=== PATIENT | male | born 1945 | race Caucasian/White ===

== ENCOUNTER 2018-02-01 10:51 | Inpatient (IN) | payer MEDICARE, SELFPAY ==
[2018-01-20 09:16] VITALS: BP 158/89; PULSE 73; RESP 17; TEMP 37; O2SAT 96; BMI 35.6
--- NOTE | 2018-01-20 09:37 | SDCEKG_ITS ---
Test Reason : Blood Pressure : / mmHG Vent. Rate : 069 BPM Atrial Rate : 069 BPM P-R Int : 174 ms QRS Dur : 100 ms QT Int : 388 ms P-R-T Axes : 061 -15 023 degrees QTc Int : 415 ms Normal sinus rhythm Normal ECG Confirmed by EFRAIN FUENTES, PRAVEENA ([id number]), dictionary editor FREDERIC LICONA ([id number]) on 01/23/2018 2:24:40 PM Referred By: Cirilo Duncan Confirmed By:PRAVEENA ZUNIGA MD
--- NOTE | 2018-01-20 09:37 | RAD_ITS ---
STUDY: X-RAY CHEST REASON FOR EXAM: Male, 72 years old. Shortness of breath. Preoperative evaluation. TECHNIQUE: PA and lateral views of the chest. COMPARISON: None. FINDINGS: Hyperinflation. The lungs are clear. There is no demonstrated pleural abnormality. Normal size heart. Normal mediastinum and kenton. Normal visualized pulmonary arteries. There is atherosclerotic calcification of the aortic arch with tortuosity. There are degenerative changes of the visualized thoracic spine. Normal visualized ribs, clavicles, and shoulders. There is no demonstrated abnormality of the visualized soft tissue structures of the upper abdomen. RAD/Chest PA and Lateral IMPRESSION: Hyperinflation. The lungs are clear. Electronically Signed: Stevie Sargent MD at 10:50 EST Tel [phone], Service support ,
[2018-01-20 10:06] LABS: Absolute Lymphocyte Count 1.54 X10^3/ul (0.83-4.51); Absolute Neutrophil Count 3.3 X10^3/uL (2.0-7.7); Basophil# 0.03 X10^3/uL; Basophil% 0.5 % (0-1); Eosinophil# 0.16 X10^3/uL; Eosinophils% 2.8 % (0-5); Hematocrit 45.1 % (40-54); Hemoglobin 15.4 g/dl (13.0-16.5); Lymphocyte # 1.54 X10^3/ul (4.0); Lymphocyte % 27.4 % (19-41); Mean Corp Hgb Conc 34.1 g/gl (32-36); Mean Corpuscular Hgb 31.2 pg (27.0-32.0); Mean Corpuscular Volume 91.3 fL (80-94); Mean Platelet Vol. 9.3 fl (6.2-12.0); Monocyte# 0.61 X10^3/uL; Monocyte% 10.9 % (0-10); Neutrophil # 3.28 X10^3/uL (2.7-7.7); Neutrophil % 58.4 % (47-70); Platelet Count 239 K/mm3 (150-450); RBC Distribution Width CV 12.5 % (11.6-14.6); RBC Distribution Width SD 41.9 fl (35.1-43.9); Red Blood Count 4.94 M/mm3 (4.6-6.2); White Blood Count 5.6 K/mm3 (4.4-11.0)
[2018-01-20 10:07] LABS: POSITIVE COUNT NO; POSITIVE DIFFERENTIAL NO; POSITIVE MORPHOLOGY NO
[2018-01-20 10:39] LABS: Hemoglobin A1c 7.2 % (4.2-6.3)
[2018-01-20 10:48] LABS: Anion Gap 7 (5-15); BUN 23 mg/dL (7-18); BUN/Creat Ratio 23.2 RATIO (10-20); Calcium,Total 8.2 mg/dL (8.5-10.1); Chloride 106 mmol/L (98-107); Creatinine, Serum 0.99 mg/dL (0.70-1.30); EST Glomerular Filtration Rate 79 mL/min (>60); Est Glom Filt Rate - Afr Amer 95 mL/min (>60); Estimated Creatinine Clearance 56.48 ml/min; Glucose 148 mg/dL (74-106); Potassium 4.2 mmol/L (3.5-5.1); Sodium Level 140 mmol/L (136-145)
[2018-02-01] VITALS (9 sets, daily range): BP systolic 119–155; BP diastolic 62–92; PULSE 60–94; RESP 15–18; TEMP 36–36.8; O2SAT 90–96; BMI 35.6; BMI 33.0
[2018-02-01] MEDS: oxyCODONE HCl Cr 10 MG Tablet PO (11:39)
[2018-02-01] MEDS: Celecoxib 200 MG Capsule 400 MG PO (11:40)
[2018-02-01] MEDS: Acetaminophen 500 MG Tablet 1000 MG PO ×2 (11:40→21:37)
[2018-02-01] MEDS: Scopolamine 1mg/72hr Patch 1 PATCH TD (12:15)
[2018-02-01 12:50] LABS: Bedside Glucose 139 mg/dL (70-110)
[2018-02-01] MEDS: Cefazolin 2 GM in 0.9% Normal Saline 100 ML IV (13:20)
[2018-02-01] MEDS: Lactated Ringers 1,000 ML 125 ML IV (15:15)
--- NOTE | 2018-02-01 15:17 | PCM.OPRPT ---
Report of Operation Date of Procedure: 02/01/18 Pre-Operative Diagnosis: Left shoulder primary glenohumeral arthritis Post-Operative Diagnosis: Left shoulder primary glenohumeral arthritis Surgery/Procedure Performed:: Left anatomic total shoulder replacement Description of Surgical Findings:: Stable shoulder. Well repaired lesser tuberosity osteotomy. microfilm machine operator: Pk Hills Type of Anesthesia:: General Anesthesiologist: Leighton Carr Special Medications: 2 g Ancef, 1 g TXA at incision, 1 g TXA closure, 10 mg Decadron, joint cocktail (5 mg Duramorph, 30 mL of 0.5% Ropivicaine, 1000 units of epinephrine, 30 mg of Toradol), vancomycin IV throughout case Specimen's removed: Bony cuts Estimated Blood Loss (mL): 150 Fluids Replaced: 1000 L crystalloid Description of Procedure: Components used 1. [place] 48 mm glenoid 2. Equinox 52mm, 23mm humeral head number 4 mm offset 4. Equinox humeral stem primary press-fit 11mm size Brief history/Operative indications: 72 yo M with history of L shoulder primary glenohumeral osteoarthritis. Patient failed conservative measures as mentioned in the H&P. After discussion of risk and benefits of reverse total shoulder replacement including but not limited to blood loss, DVTs, PEs, nerve vessel damage, infection, general risk of anesthesia including loss of life, instability and stiffness patient demonstrating understanding wish to proceed was able to sign informed consent. Medical clearance was obtained. Procedure: On the date of the procedure, patient's L upper extremity was marked in the preoperative area. Patient was taken back to the operating room where they were placed on the table in the supine position. Anesthesia assumed control of the C-spine and airway, then administered anesthetic. All bony prominences were identified well-padded, the head was secured and the patient was placed in the beachchair position at about 35? inclination. Anesthesia remained in control of the C-spine airway throughout the remainder of the procedure. Patient was then appropriately fastened to the table and the L upper extremity was prepped in a sterile fashion. The surgeons then scrubbed. Upon reentering the room, the L upper extremity was draped in a sterile fashion and the incision was marked out. Timeout was called, everyone agreed upon the side, the site, the procedure to be performed, patient identity and antibiotics given. Incision was taken down through skin and subcutaneous tissue, fat down to fascia. The stripe of the deltopectoral interval and cephalic vein were identified and blunt dissection was used to retract the deltoid. The cephalic vein was retracted laterally. Clavipectoral fascia was then incised and a cobra retractor was placed in the wound. The proximal one third of the pectoralis major insertion was released. Pectoralis tendon insertion was used to tenodesed the biceps tendon which was identified in the bicipital groove. Tenodesis was done with #1 Vicryl. Proximally we followed the biceps tendon after transecting it into the rotator interval. The rotator interval was split and the arm was externally rotated. The split was 1 cm medial to the bicipital groove. Subscapularis tendon was released. We released down the anterior portion of the humeral head and a barclay elevator was used to release the inferior portion of the humeral head. The arm was externally rotated and the shoulder was dislocated. The [employer] humeral head cutting guide was used to make humeral cut. This was done even with the articular surface. Once his humeral head cut was made humerus was retracted out of the way and the glenoid was exposed. After exposing the glenoid, the labrum and the remaining proximal biceps were debrided. At this time we are able to view the entire outer edge of the glenoid. A central pin was placed we sequentially reamed over this central pin to 48MM. Once this was completed the central pedicle was drilled. Wound was closely irrigated out with normal saline we then drilled sequentially for the coinciding 3 peg holes. Once these were drilled and a trial was placed. Once the trial fit appropriately cement was mixed. The bone was copiously irrigated and cleaned out. It was then dried very well. The cement holes were pressurized and the glenoid was fastened in place. The cement had cured and the glenoid was secure we directed our attention to the humerus The humerus was again externally rotated exposing the proximal portion of the humerus. Central canal finder was then used to open up the canal. We reamed to a 11mm reamer. We then broached to a 11mm stem. We trialed the 52 mm x 23 mm with 4 mm offset humeral head. We obtained an adequate reduction at this time with a nice stable shoulder. Good internal rotation to the gluteus, forward elevation to 140?, external rotation to 20? and 50% posterior translation. Final components were then assembled on the back table, trials were removed and the wound was copiously irrigated with normal saline after dislocating the shoulder. Once the final components were assembled they were impacted into place. Shoulder was then reduced and found to be stable with good range of motion. Subscapularis tendon and osteotomy were then repaired securely with FiberWire. A 1 L of normal saline lavage was performed. The deltopectoral fascia was then closed using #1 Vicryl skin was closed using 2-0 Vicryl interrupted sutures and final skin closure was done with 3-0 Monocryl. Steri-Strips are placed for final skin closure. Sterile dressing was placed patient was then placed in a sling and awakened by anesthesia. Patient was then transferred to the PACU for recovery. Postoperative plan: Patient will be admitted to the hospital overnight. They will get physical therapy starting in 2 weeks with normal postoperative regimen. Patient will be placed on aspirin daily for DVT prophylaxis. The first postoperative appointment will be in 2 weeks for wound check and initiation of phase 1 physical therapy. During the course of the procedure the physician real estate administrative assistant played a vital role. His intimate knowledge of my steps in the procedure aided in safe and expedient completion of the procedure. The PA played a vital rolls in positioning particularly in obtaining the appropriate beach chair position and securing the patient's body and head to the table. The PA was also vital in the retraction of soft tissues during the exposure and especially the glenoid work as this is a vital part of the procedure to prevent neurovascular damage. the PA was also vital and protecting soft tissues during times of bony cuts and reaming. He also played a vital role in closure with my direct supervision. The PA was also important during reduction and dislocation of the joint and trials intraoperatively. Grafts/Implants Used: Janet reunion anatomic total shoulder - Complications None - Admit VTE Documentation VTE Present on Admission: No VTE Mechan Device Prophylaxis: SCD's, Knee High ANIL Hose VTE Pharm Prophylaxis ordered?: Yes
--- NOTE | 2018-02-01 15:22 | OP.PCM_ITS ---
Report of Operation Date of Procedure: 02/01/18 Pre-Operative Diagnosis: Left shoulder primary glenohumeral arthritis Post-Operative Diagnosis: Left shoulder primary glenohumeral arthritis Surgery/Procedure Performed:: Left anatomic total shoulder replacement Description of Surgical Findings:: Stable shoulder. Well repaired lesser tuberosity osteotomy. slipcover cutter: Pk Hills Type of Anesthesia:: General Anesthesiologist: Leighton Carr Special Medications: 2 g Ancef, 1 g TXA at incision, 1 g TXA closure, 10 mg Decadron, joint cocktail (5 mg Duramorph, 30 mL of 0.5% Ropivicaine, 1000 units of epinephrine, 30 mg of Toradol), vancomycin IV throughout case Specimen's removed: Bony cuts Estimated Blood Loss (mL): 150 Fluids Replaced: 1000 L crystalloid Description of Procedure: Components used 1. [place] 48 mm glenoid 2. Equinox 52mm, 23mm humeral head number 4 mm offset 4. Equinox humeral stem primary press-fit 11mm size Brief history/Operative indications: 72 yo M with history of L shoulder primary glenohumeral osteoarthritis. Patient failed conservative measures as mentioned in the H&P. After discussion of risk and benefits of reverse total shoulder replacement including but not limited to blood loss, DVTs, PEs, nerve vessel damage, infection, general risk of anesthesia including loss of life, instability and stiffness patient demonstrating understanding wish to proceed was able to sign informed consent. Medical clearance was obtained. Procedure: On the date of the procedure, patient's L upper extremity was marked in the preoperative area. Patient was taken back to the operating room where they were placed on the table in the supine position. Anesthesia assumed control of the C-spine and airway, then administered anesthetic. All bony prominences were identified well-padded, the head was secured and the patient was placed in the beachchair position at about 35? inclination. Anesthesia remained in control of the C-spine airway throughout the remainder of the procedure. Patient was then appropriately fastened to the table and the L upper extremity was prepped in a sterile fashion. The surgeons then scrubbed. Upon reentering the room, the L upper extremity was draped in a sterile fashion and the incision was marked out. Timeout was called, everyone agreed upon the side, the site, the procedure to be performed, patient identity and antibiotics given. Incision was taken down through skin and subcutaneous tissue, fat down to fascia. The stripe of the deltopectoral interval and cephalic vein were identified and blunt dissection was used to retract the deltoid. The cephalic vein was retracted laterally. Clavipectoral fascia was then incised and a cobra retractor was placed in the wound. The proximal one third of the pectoralis major insertion was released. Pectoralis tendon insertion was used to tenodesed the biceps tendon which was identified in the bicipital groove. Tenodesis was done with #1 Vicryl. Proximally we followed the biceps tendon after transecting it into the rotator interval. The rotator interval was split and the arm was externally rotated. The split was 1 cm medial to the bicipital groove. Subscapularis tendon was released. We released down the anterior portion of the humeral head and a barclay elevator was used to release the inferior portion of the humeral head. The arm was externally rotated and the shoulder was dislocated. The [employer] humeral head cutting guide was used to make humeral cut. This was done even with the articular surface. Once his humeral head cut was made humerus was retracted out of the way and the glenoid was exposed. After exposing the glenoid, the labrum and the remaining proximal biceps were debrided. At this time we are able to view the entire outer edge of the glenoid. A central pin was placed we sequentially reamed over this central pin to 48MM. Once this was completed the central pedicle was drilled. Wound was closely irrigated out with normal saline we then drilled sequentially for the coinciding 3 peg holes. Once these were drilled and a trial was placed. Once the trial fit appropriately cement was mixed. The bone was copiously irrigated and cleaned out. It was then dried very well. The cement holes were pressurized and the glenoid was fastened in place. The cement had cured and the glenoid was secure we directed our attention to the humerus The humerus was again externally rotated exposing the proximal portion of the humerus. Central canal finder was then used to open up the canal. We reamed to a 11mm reamer. We then broached to a 11mm stem. We trialed the 52 mm x 23 mm w ith 4 mm offset humeral head. We obtained an adequate reduction at this time with a nice stable shoulder. Good internal rotation to the gluteus, forward elevation to 140?, external rotation to 20? and 50% posterior translation. Final components were then assembled on the back table, trials were removed and the wound was copiously irrigated with normal saline after dislocating the shoulder. Once the final components were assembled they were impacted into place. Shoulder was then reduced and found to be stable with good range of motion. Subscapularis tendon and osteotomy were then repaired securely with FiberWire. A 1 L of normal saline lavage was performed. The deltopectoral fascia was then closed using #1 Vicryl skin was closed using 2-0 Vicryl interrupted sutures and final skin closure was done with 3-0 Monocryl. Steri- Strips are placed for final skin closure. Sterile dressing was placed patient was then placed in a sling and awakened by anesthesia. Patient was then transfe rred to the PACU for recovery. Postoperative plan: Patient will be admitted to the hospital overnight. They will get physical therapy starting in 2 weeks with normal postoperative regimen. Patient will be placed on aspirin daily for DVT prophylaxis. The first postoperative appointment will be in 2 weeks for wound check and initiation of phase 1 physical therapy. During the course of the procedure the physician marketing communications assistant played a vital role. His intimate knowledge of my steps in the procedure aided in safe and expedient completion of the procedure. The PA played a vital rolls in positioning particularly in obtaining the appropriate beach chair position and securing the patient's body and head to the table. The PA was also vital in the retraction of soft tissues during the exposure and especially the glenoid work as this is a vital part of the procedure to prevent neurovascular damage. the PA was also vital and protecting soft tissues during times of bony cuts and reaming. He a lso played a vital role in closure with my direct supervision. The PA was also important during reduction and dislocation of the joint and trials intraoperatively. Grafts/Implants Used: Sharps reunion anatomic total shoulder - Complications None - Admit VTE Documentation VTE Present on Admission: No VTE Mechan Device Prophylaxis: SCD's, Knee High ANIL Hose VTE Pharm Prophylaxis ordered?: Yes
--- NOTE | 2018-02-01 16:15 | RAD_ITS ---
STUDY: X-RAY - LEFT SHOULDER REASON FOR EXAM: Male, 72 years old. Postop left shoulder arthroplasty. TECHNIQUE: Portable, frontal view(s) of the shoulder. COMPARISON: None. FINDINGS: Left shoulder arthroplasty. The prosthetic components appear to be normally seated and articulated with no acute fracture. Moderate chronic AC joint arthrosis. Expected postsurgical features in the surrounding soft tissues. RAD/Shoulder One View IMPRESSION: Appropriate postsurgical features. Correlate with operative report. Electronically Signed: Leander Wilkinson MD at 17:25 EST Tel , Service support ,
[2018-02-01 16:40] LABS: Bedside Glucose 137 mg/dL (70-110)
[2018-02-01] MEDS: Cefazolin 1 GM/50 ML BAG IV (21:37)
[2018-02-02 03:30] VITALS: BP 124/70; PULSE 68; RESP 18; TEMP 36.4; O2SAT 94
[2018-02-02] MEDS: Acetaminophen 500 MG Tablet 1000 MG PO (05:44)
[2018-02-02] MEDS: Cefazolin 1 GM/50 ML BAG IV (05:44)
[2018-02-02 07:56] VITALS: O2SAT 93
[2018-02-02] MEDS: Famotidine 20 MG Tablet PO (07:57)
[2018-02-02] MEDS: Aspirin 325 MG Tablet PO (07:57)
[2018-02-02] MEDS: Lisinopril 20 MG Tablet PO (07:57)
[2018-02-02] MEDS: Methylphenidate HCl 5 MG Tablet 10 MG PO (07:57)
[2018-02-02 08:00] VITALS: BP 111/66; PULSE 69; RESP 14; TEMP 36.3; O2SAT 96
--- NOTE | 2018-02-02 08:49 | PN.ORTHO_ITS ---
Subjective: The patient was sitting in bedside chair upon examination. Patient denies any chest pain, shortness of breath, dizziness, lightheadedness, nausea or vomiting, or calf pain. Pain is controlled on medications. No adverse overnight events. Overall patient is doing very well. Plan is for discharge home today. Objective: Vital signs stable, afebrile Dressing is C/D/I Ultra-sling fitting appropriately Sensation intact to axillary, radial, median, and ulnar distribution Motor intact to AIN, PIN, and ulnar nerve - Physical Exam General: Alert, Oriented x3, Cooperative, No apparent distress Vital Signs Temp Pulse Resp BP Pulse Ox 97.4 F L 69 14 111/66 96 02/02/18 08:00 02/02/18 08:00 02/02/18 08:00 02/02/18 08:00 02/02/18 08:00 Oxygen Flow Rate (L/min) 1 Oxygen Delivery Method Room Air Weight: 95.5 kg Body Mass Index (BMI) 33.0 Finger Stick Blood Glucose 137 Intake and Output for Last 24 Hours 01/31/18 02/01/18 02/02/18 23:59 23:59 23:59 Intake Total 1000 / 1000 647 / 647 Balance 1000 / 1000 647 / 647 POC Glucose 02/01/18 02/01/18 16:28 11:59 POC Glucose 137 H 139 H Medical Necessity - Tobacco Use Smoking Status: Never smoker Assessment/Plan 1. S/P left anatomic total shoulder arthroplasty POD #1 2. Continue Pain Medications: Tylenol and OxyIR 3. DVT Prophylaxis: Aspirin 325 mg daily for DVT prophylaxis for 2 weeks postoperatively 4. PT/OT: No range of motion left shoulder. Okay for physical therapy to work on elbow, wrist, hand range of motion only. Continue with UltraSling at all times. Patient will begin formal physical therapy 2 weeks postoperatively after his appointment at [facility]. 5. Encouraged Incentive Spirometry 6. Disposition: Orthopedically stable, plan will be for discharge home today. Patient will follow-up per postop instructions. Prescriptions will be attached to chart.
--- NOTE | 2018-02-02 08:51 | PCM.DC.ORTHO ---
Discharge Diet: No Restrictions Discharge Activity: May Not Drive May shower in (days): 1 - Turned dressing away from water Ice area for (Minutes): 20 - Every 1-2 hours while awake Weight Bearing Status: No weight bearing - Left upper extremity Keep extremity elevated above heart level: Operative Extremity Call your doctor if your incision/area has: Continuous Slow Oozing, Sudden Increased Bleeding, Increased Pain/ Swelling, Increased Redness, Foul Smelling Discharge Call your doctor if you observe: Fever of 101 or Higher, Coldness, Increased Pain, Numbness or Tingling, Change in Color Remove Dressing in (days):: 4 - Okay to remove on February 06, 2018 Additional Instructions: Follow [facility] postop instructions Allergies/Adverse Reactions: Allergies No Known Allergies Allergy (Verified 01/20/18 09:10) Medications to take at Discharge Lisinopril [Zestril] 20 mg PO DAILY 01/20/18 Methylphenidate HCl [Ritalin] 10 mg PO BID 01/20/18 Acetaminophen [Tylenol] 1,000 mg PO Q8 #90 tab 02/02/18 Aspirin 325 mg PO DAILY@0800 #14 tab 02/02/18 Famotidine [Pepcid] 20 mg PO DAILY #14 tab 02/02/18 Oxycodone [Oxyir] 5 - 10 mg PO Q4H PRN PRN 5 Days #60 tab 02/02/18 Senna/Docusate Sodium [Senokot-S] 2 tab PO BID PRN PRN #20 tab 02/02/18 The following prescriptions were given: Oxycodone [Oxyir] 5 - 10 mg PO Q4H PRN PRN 5 Days #60 tab PRN Reason: Pain Acetaminophen [Tylenol] 1,000 mg PO Q8 #90 tab Aspirin 325 mg PO DAILY@0800 #14 tab Famotidine [Pepcid] 20 mg PO DAILY #14 tab Senna/Docusate Sodium [Senokot-S] 2 tab PO BID PRN PRN #20 tab PRN Reason: Constipation Primary Care Physician: Jacob Qiu [Primary Care Provider] - Test Results: Test results from this visit will be discussed in further detail at your follow-up appointment, if applicable. Please Follow Up With: Physical Therapy When: Violeta webber will call to schedule appointment on either 02/15/18 or 02/16/18 Please Follow Up With: Pk Hills PA-C When: 02/15/18 @ 9:30 am
--- NOTE | 2018-02-02 08:56 | DCINST_ITS ---
Discharge Diet: No Restrictions Discharge Activity: May Not Drive May shower in (days): 1 - Turned dressing away from water Ice area for (Minutes): 20 - Every 1-2 hours while awake Weight Bearing Status: No weight bearing - Left upper extremity Keep extremity elevated above heart level: Operative Extremity Call your doctor if your incision/area has: Continuous Slow Oozing, Sudden Increased Bleeding, Increased Pain/ Swelling, Increased Redness, Foul Smelling Discharge Call your doctor if you observe: Fever of 101 or Higher, Coldness, Increased Pain, Numbness or Tingling, Change in Color Remove Dressing in (days):: 4 - Okay to remove on February 06, 2018 Additional Instructions: Follow [facility] postop instructions Allergies/Adverse Reactions: Allergies No Known Allergies Allergy (Verified 01/20/18 09:10) Medications to take at Discharge Lisinopril [Zestril] 20 mg PO DAILY 01/20/18 Methylphenidate HCl [Ritalin] 10 mg PO BID 01/20/18 Acetaminophen [Tylenol] 1,000 mg PO Q8 #90 tab 02/02/18 Aspirin 325 mg PO DAILY@0800 #14 tab 02/02/18 Famotidine [Pepcid] 20 mg PO DAILY #14 tab 02/02/18 Oxycodone [Oxyir] 5 - 10 mg PO Q4H PRN PRN 5 Days #60 tab 02/02/18 Senna/Docusate Sodium [Senokot-S] 2 tab PO BID PRN PRN #20 tab 02/02/18 The following prescriptions were given: Oxycodone [Oxyir] 5 - 10 mg PO Q4H PRN PRN 5 Days #60 tab PRN Reason: Pain Acetaminophen [Tylenol] 1,000 mg PO Q8 #90 tab Aspirin 325 mg PO DAILY@0800 #14 tab Famotidine [Pepcid] 20 mg PO DAILY #14 tab Senna/Docusate Sodium [Senokot-S] 2 tab PO BID PRN PRN #20 tab PRN Reason: Constipation Primary Care Physician: Jacob Qiu [Primary Care Provider] - Test Results: Test results from this visit will be discussed in further detail at your follow- up appointment, if applicable. Please Follow Up With: Physical Therapy When: Violeta webber will call to schedule appointment on either 02/15/18 or 02/16/18 Please Follow Up With: Pk Hills PA-C When: 02/15/18 @ 9:30 am
--- NOTE | 2018-02-02 12:00 | CASEMGMT ---
ZAKIYA WONG Face to Face with patient for initial transition planning/care coordination assessment. RN CM introduced self and role at [facility]. Patient sitting in chair, alert and oriented. Patient willing to participate in assessment and is able to answer all questions appropriately. Care providers, pharmacy, and demographics verified. Patient wishes to discharge home with follow-up at [facility]. Patient states he has no further needs or concerns at this time. CM to follow for discharge planning needs that may arise. Disposition Plan: Patient to discharge home with family support and follow-up plans in place. Leatha SOTOMAYOR, RN, CM
--- OUTSIDE RECORDS SUMMARY | 2018-05-05 14:54 | XMS RPT_ITS ---
:1945 Author Organization OHIP Care Team Providers Name Role Phone CIRILO WHITTINGTON MD Admitting Unavailable CIRILO WHITTINGTON MD Attending Unavailable CIRILO WHITTINGTON MD Primary Care Unavailable Serg Sarmiento Attending Unavailable Cirilo Whittington Referring Unavailable Cirilo Whittington Admitting Unavailable Cirilo Whittington Attending Unavailable Cirilo Whittington Referring Unavailable Jacob Qiu Primary Care Unavailable PROBLEMS PROBLEMS DATE TYPE CONDITION / CODE ATTENDING STATUS SOURCE 02/02/2018 Unknown Z96.612 - Presence Cirilo Whittington Active Violeta of left artificial [facility] shoulder joint / Hospital Z96.612(ICD-10) Repository 01/27/2018 Unknown Z01.810 - Encounter Michael Sarmientoril Active Violeta for preprocedural [facility] examination / Repository Z01.810(ICD-10) PROCEDURES PROCEDURES No Procedure Records FoundRESULTS RESULTS DISCHARGE INSTRUCTION Observed: 02/02/2018 Status: F Source: [place] 9:01 AM [facility] RE[facility]ITORY [facility] Medical Records Department [address] [place] [address] Instructions for Home/Discharge Instructions 02/02/18 0851 MR#: [id number] Acct: [id number] Name: LEANDER GRIMM Rep #: [id number] : 1945 72 From: Pk Hills PA-C PCP: Jacob Qiu MD Status: ADM IN Discharge Diet: No Restrictions Discharge Activity: May Not Drive May shower in (days): 1 - Turned dressing away from water Ice area for (Minutes): 20 - Every 1-2 hours while awake Weight Bearing Status: No weight bearing - Left upper extremity Keep extremity elevated above heart level: Operative Extremity Call your doctor if your incision/area has: Continuous Slow Oozing, Sudden Increased Bleeding, Increased Pain/ Swelling, Increased Redness, Foul Smelling Discharge Call your doctor if you observe: Fever of 101 or Higher, Coldness, Increased Pain, Numbness or Tingling, Change in Color Remove Dressing in (days):: 4 - Okay to remove on February 06, 2018 Additional Instructions: Follow [facility] [facility] postop instructions Allergies/Adverse Reactions: Allergies No Known Allergies Allergy (Verified 01/20/18 09:10) Medications to take at Discharge Lisinopril [Zestril] 20 mg PO DAILY 01/20/18 Methylphenidate HCl [Ritalin] 10 mg PO BID 01/20/18 Acetaminophen [Tylenol] 1,000 mg PO Q8 #90 tab 02/02/18 Aspirin 325 mg PO DAILY@0800 #14 tab 02/02/18 Famotidine [Pepcid] 20 mg PO DAILY #14 tab 02/02/18 Oxycodone [Oxyir] 5 - 10 mg PO Q4H PRN PRN 5 Days #60 tab 02/02/18 Senna/Docusate Sodium [Senokot-S] 2 tab PO BID PRN PRN #20 tab 02/02/18 The following prescriptions were given: Oxycodone [Oxyir] 5 - 10 mg PO Q4H PRN PRN 5 Days #60 tab PRN Reason: Pain Acetaminophen [Tylenol] 1,000 mg PO Q8 #90 tab Aspirin 325 mg PO DAILY@0800 #14 tab Famotidine [Pepcid] 20 mg PO DAILY #14 tab Senna/Docusate Sodium [Senokot-S] 2 tab PO BID PRN PRN #20 tab PRN Reason: Constipation Primary Care Physician: Jacob Qiu [Primary Care Provider] - Test Results: Test results from this visit will be discussed in further detail at your follow-up appointment, if applicable. Please Follow Up With: Physical Therapy When: [facility] [facility] will call to schedule appointment on either 02/15/18 or 02/16/18 Please Follow Up With: Pk Hills PA-C When: 02/15/18 @ 9:30 am 02/02/18 0901 <Electronically signed by Pk Hills PA-C> Date Pk Hills PA-C CC: Jacob Qiu MD BEDSIDE GLUCOSE Collected: 02/01/2018 Status: F Source: [place] 4:28 PM [facility] CODE TESTS RESULT OUT OF REFERENCE UNITS RANGE LAB L501.080 70-110 mg/dL High BEDSIDE GLU 137 Result Comment: MANAGEMENT OF PATIENT CARE PER NURSING PROTOCOL Performed By: #### L501.080 #### [facility] Laboratory Point of Care [address] [facility] [place] [address] OPERATIVE REPORT Observed: 02/01/2018 Status: F Source: [place] 3:22 PM [facility] [place] [facility] Medical Records Department [address] [place] [address] Operative Report 02/01/18 1517 MR#: [id number] Acct: [id number] Name: LEANDER GRIMM Rep #: [id number] : 1945 72 From: Cirilo Whittington MD PCP: Jacob Qiu MD Status: ADM IN [place] [facility] [place] [id number] Report of Operation Date of Procedure: 02/01/18 Pre-Operative Diagnosis: Left shoulder primary glenohumeral arthritis Post-Operative Diagnosis: Left shoulder primary glenohumeral arthritis Surgery/Procedure Performed:: Left anatomic total shoulder replacement Description of Surgical Findings:: Stable shoulder. Well repaired lesser tuberosity osteotomy. academic support coordinator: Pk Hills Type of Anesthesia:: General Anesthesiologist: Leighton Carr Special Medications: 2 g Ancef, 1 g TXA at incision, 1 g TXA closure, 10 mg Decadron, joint cocktail (5 mg Duramorph, 30 mL of 0.5% Ropivicaine, 1000 units of epinephrine, 30 mg of Toradol), vancomycin IV throughout case Specimen's removed: Bony cuts Estimated Blood Loss (mL): 150 Fluids Replaced: 1000 L crystalloid Description of Procedure: Components used 1. Gibson 48 mm glenoid 2. Equinox 52mm, 23mm humeral head number 4 mm offset 4. Equinox humeral stem primary press-fit 11mm size Brief history/Operative indications: 72 yo M with history of L shoulder primary glenohumeral osteoarthritis. Patient failed conservative measures as mentioned in the H AND P. After discussion of risk and benefits of reverse total shoulder replacement including but not limited to blood loss, DVTs, PEs, nerve vessel damage, infection, general risk of anesthesia including loss of life, instability and stiffness patient demonstrating understanding wish to proceed was able to sign informed consent. Medical clearance was obtained. Procedure: On the date of the procedure, patient's L upper extremity was marked in the preoperative area. Patient was taken back to the operating room where they were placed on the table in the supine position. Anesthesia assumed control of the C-spine and airway, then administered anesthetic. All bony prominences were identified well-padded, the head was secured and the patient was placed in the beachchair position at about 35 inclination. Anesthesia remained in control of the C-spine airway throughout the remainder of the procedure. Patient was then appropriately fastened to the table and the L upper extremity was prepped in a sterile fashion. The surgeons then scrubbed. Upon reentering the room, the L upper extremity was draped in a sterile fashion and the incision was marked out. Timeout was called, everyone agreed upon the side, the site, the procedure to be performed, patient identity and antibiotics given. Incision was taken down through skin and subcutaneous tissue, fat down to fascia. The stripe of the deltopectoral interval and cephalic vein were identified and blunt dissection was used to retract the deltoid. The cephalic vein was retracted laterally. Clavipectoral fascia was then incised and a cobra retractor was placed in the wound. The proximal one third of the pectoralis major insertion was released. Pectoralis tendon insertion was used to tenodesed the biceps tendon which was identified in the bicipital groove. Tenodesis was done with #1 Vicryl. Proximally we followed the biceps tendon after transecting it into the rotator interval. The rotator interval was split and the arm was externally rotated. The split was 1 cm medial to the bicipital groove. Subscapularis tendon was released. We released down the anterior portion of the humeral head and a barclay elevator was used to release the inferior portion of the humeral head. The arm was externally rotated and the shoulder was dislocated. The ALLGOOB humeral head cutting guide was used to make humeral cut. This was done even with the articular surface. Once his humeral head cut was made humerus was retracted out of the way and the glenoid was exposed. After exposing the glenoid, the labrum and the remaining proximal biceps were debrided. At this time we are able to view the entire outer edge of the glenoid. A central pin was placed we sequentially reamed over this central pin to 48MM. Once this was completed the central pedicle was drilled. Wound was closely irrigated out with normal saline we then drilled sequentially for the coinciding 3 peg holes. Once these were drilled and a trial was placed. Once the trial fit appropriately cement was mixed. The bone was copiously irrigated and cleaned out. It was then dried very well. The cement holes were pressurized and the glenoid was fastened in place. The cement had cured and the glenoid was secure we directed our attention to the humerus The humerus was again externally rotated exposing the proximal portion of the humerus. Central canal finder was then used to open up the canal. We reamed to a 11mm reamer. We then broached to a 11mm stem. We trialed the 52 mm x 23 mm with 4 mm offset humeral head. We obtained an adequate reduction at this time with a nice stable shoulder. Good internal rotation to the gluteus, forward elevation to 140 , external rotation to 20 and 50% posterior translation. Final components were then assembled on the back table, trials were removed and the wound was copiously irrigated with normal saline after dislocating the shoulder. Once the final components were assembled they were impacted into place. Shoulder was then reduced and found to be stable with good range of motion. Subscapularis tendon and osteotomy were then repaired securely with FiberWire. A 1 L of normal saline lavage was performed. The deltopectoral fascia was then closed using #1 Vicryl skin was closed using 2-0 Vicryl interrupted sutures and final skin closure was done with 3-0 Monocryl. Steri-Strips are placed for final skin closure. Sterile dressing was placed patient was then placed in a sling and awakened by anesthesia. Patient was then transferred to the PACU for recovery. Postoperative plan: Patient will be admitted to the hospital overnight. They will get physical therapy starting in 2 weeks with normal postoperative regimen. Patient will be placed on aspirin daily for DVT prophylaxis. The first postoperative appointment will be in 2 weeks for wound check and initiation of phase 1 physical therapy. During the course of the procedure the physician client account assistant played a vital role. His intimate knowledge of my steps in the procedure aided in safe and expedient completion of the procedure. The PA played a vital rolls in positioning particularly in obtaining the appropriate beach chair position and securing the patient's body and head to the table. The PA was also vital in the retraction of soft tissues during the exposure and especially the glenoid work as this is a vital part of the procedure to prevent neurovascular damage. the PA was also vital and protecting soft tissues during times of bony cuts and reaming. He also played a vital role in closure with my direct supervision. The PA was also important during reduction and dislocation of the joint and trials intraoperatively. Grafts/Implants Used: Janet reunion anatomic total shoulder - Complications None - Admit VTE Documentation VTE Present on Admission: No VTE Mechan Device Prophylaxis: SCD's, Knee High ANIL Hose VTE Pharm Prophylaxis ordered?: Yes 02/01/18 1522 <Electronically signed by Cirilo Whittington MD> Date Cirilo Whittington MD CC: Jacob Qiu MD; Cirilo Whittington MD Signed SHOULDER ONE VIEW Observed: 02/01/2018 Status: F Source: [place] 3:18 PM [facility] [place] [facility] Imaging Services [address] [place] [id number] Shoulder One View MR#: [id number] Acct: [id number] Name: LEANDER GRIMM Rep #: [id number] : 1945 M 72 From: Leander Wilkinson MD PCP: Jacob Qiu MD Status: ADM IN Study: Shoulder One View Date of Exam: 02/01/18 Exam# [id number] Ordering Dr: Cirilo Whittington MD STUDY: X-RAY - LEFT SHOULDER REASON FOR EXAM: Male, 72 years old. Postop left shoulder arthroplasty. TECHNIQUE: Portable, frontal view(s) of the shoulder. COMPARISON: None. FINDINGS: Left shoulder arthroplasty. The prosthetic components appear to be normally seated and articulated with no acute fracture. Moderate chronic AC joint arthrosis. Expected postsurgical features in the surrounding soft tissues. RAD/Shoulder One View IMPRESSION: Appropriate postsurgical features. Correlate with operative report. Electronically Signed: Leander Wilkinson MD at 17:25 EST Tel , Service support , CC: Jacob Qiu MD; Cirilo Whittington MD Parachute/Combatant Diver Officer: Signed BEDSIDE GLUCOSE Collected: 02/01/2018 Status: F Source: [place] 11:59 AM [facility] [place] TYPE CODE TESTS RESULT OUT OF REFERENCE UNITS RANGE LAB L501.080 70-110 mg/dL High BEDSIDE GLU 139 Result Comment: MANAGEMENT OF PATIENT CARE PER NURSING PROTOCOL Performed By: #### L501.080 #### [facility] Laboratory Point of Care [address] [facility] [place] [address] 12 LEAD ELECTROCARDIOGRAM Observed: 01/23/2018 Status: F Source: [place] 2:25 PM [facility] [place] [facility] Cardiovascular Services [address] [place] [address] EKG - [facility] [place] 01/20/18 0945 MR#: [id number] Acct: [id number] Name: LEANDER GRIMM Rep #: [id number] : 1945 72 From: Serg Sarmiento MD Attending Dr: Cirilo Whittington MD Status: PRE IN Ordering Dr: Cirilo Whittington MD Date: 12/07/18 Location: [facility] [place] Sex: M C Admitted: Test Reason : Blood Pressure : / mmHG Vent. Rate : 069 BPM Atrial Rate : 069 BPM P-R Int : 174 ms QRS Dur : 100 ms QT Int : 388 ms P-R-T Axes : 061 -15 023 degrees QTc Int : 415 ms Normal sinus rhythm Normal ECG Confirmed by EFRAIN FUENTES, SERG ([id number]), photo editor FREDERIC LICONA ([id number]) on 01/23/2018 2:24:40 PM Referred By: Cirilo Whittington Confirmed By:SERG SARMIENTO MD 01/23/18 1424 Date Serg Sarmiento MD CC: Jacob Qiu MD; Cirilo Whittington MD Date Dictated: 01/20/18944 Date Transcribed: 01/20/18944 Parachute/Combatant Diver Officer: Signed CBC W/DIFF, AUTOMATED Collected: 01/20/2018 Status: F Source: [place] 9:50 AM [facility] [place] TYPE CODE TESTS RESULT OUT OF RANGE REFERENCE UNITS LAB L100.1000 4.4-11.0 K/mm3 Normal WBC 5.6 LAB L100.1200 4.6-6.2 M/mm3 Normal RBC 4.94 LAB L100.1300 13.0-16.5 g/dl Normal HGB 15.4 LAB L100.1400 40-54 % Normal HCT 45.1 LAB L100.1500 80-94 fL Normal MCV 91.3 LAB L100.1600 27.0-32.0 pg Normal MCH 31.2 LAB L100.1700 32-36 g/gl Normal MCHC 34.1 LAB L100.1810 11.6-14.6 % Normal RDW CV 12.5 LAB L100.1820 35.1-43.9 fl Normal RDW SD 41.9 LAB L100.1900 150-450 K/mm3 Normal PLT 239 LAB L100.2000 6.2-12.0 fl Normal MPV 9.3 LAB L100.2100 47-70 % Normal NEUT% 58.4 LAB L100.2200 19-41 % Normal LY% 27.4 LAB L100.2300 0-10 % High MONO% 10.9 LAB L100.2400 0-5 % Normal EO% 2.8 LAB L100.2500 0-1 % Normal BASO% 0.5 LAB L100.2550 0.0-0.9 % Normal IM GRAN % 0.000 Result Comment: IG% - Immature Granulocytes (promyelocytes, myelocytes and metamyelocytes) > 1% indicates that a LEFT SHIFT is Present. LAB L100.2620 2.0-7.7 X10 3/uL Normal Absolute Neut 3.3 LAB L100.2720 0.83-4.51 X10 3/ul Normal Absolute Lymph 1.54 Performed By: #### L100.0100 #### [facility] [address] [place], [address] HEMOGLOBIN A1C Collected: 01/20/2018 Status: F Source: [place] 9:50 AM [facility] [place] TYPE CODE TESTS RESULT OUT OF RANGE REFERENCE UNITS LAB L501.9985 4.2-6.3 % High HGB A1C 7.2 Performed By: #### L501.9985 #### [facility] [address] [place], [address] BASIC METABOLIC Collected: 01/20/2018 Status: F Source: [place] PROFILE (BMP) 9:50 AM [facility] [place] TYPE CODE TESTS RESULT OUT OF RANGE REFERENCE UNITS LAB L501.0100 74-106 mg/dL High GLU 148 Result Comment: Fasting Glucose result greater than or equal to 126 mg/dL suggests DIABETES MELLITUS per A.D.A. criteria. Please note revised GLUCOSE reference range effective 2017. LAB L501.1000 7-18 mg/dL High BUN 23 LAB L501.1100 0.70-1.30 mg/dL Normal CREAT,SERUM 0.99 Result Comment: The validity of the calculated GFR AND GFRAA in patients over 70 years has not been determined. Clinical correlation is essential. LAB L501.1110 >60 mL/min Normal EST GFR 79 Result Comment: Non- GFR Calc LAB L501.1115 >60 mL/min Normal EST GFR - AA 95 Result Comment: GFR Calc LAB L501.1255 ml/min Normal Estimated CRCL 56.48 LAB L501.1300 10-20 RATIO High BUN/CRE 23.2 LAB L501.2200 8.5-10 mg/dL Low .1 CA 8.2 LAB L501.5300 136-14 mmol/L Normal 5 NA 140 LAB L501.5600 3.5-5. mmol/L Normal 1 K 4.2 LAB L501.5900 98-107 mmol/L Normal CL 106 LAB L501.6100 21.0-3 mmol/L Normal 2.0 CO2 27.0 LAB L501.6200 5-15 Normal GAP 7 Performed By: #### L500.2500 #### [facility] [address] [facility] [place], [address] Observed: 01/20/2018 Status: F Source: [place] MRSA/SAID SCREEN 9:50 AM [facility] MRSA/SAID SCRN S. AUREUS S. aureus Negative MRSA MRSA Negative Performed By: #### M100.651 #### [facility] [address] [facility] [place], [address] CHEST PA AND LATERAL Observed: 01/20/2018 Status: F Source: [place] 9:41 AM [facility] [place] [facility] Imaging Services [address] [place] [address] Chest PA and Lateral MR#: [id number] Acct: [id number] Name: LEANDER GRIMM Rep #: [id number] : 1945 M 72 From: Stevie Sargent MD PCP: Jacob Qiu MD Status: PRE IN Study: Chest PA and Lateral Date of Exam: 01/20/18 Exam# [id number] Ordering Dr: Cirilo Whittington MD STUDY: X-RAY CHEST REASON FOR EXAM: Male, 72 years old. Shortness of breath. Preoperative evaluation. TECHNIQUE: PA and lateral views of the chest. COMPARISON: None. FINDINGS: Hyperinflation. The lungs are clear. There is no demonstrated pleural abnormality. Normal size heart. Normal mediastinum and kenton. Normal visualized pulmonary arteries. There is atherosclerotic calcification of the aortic arch with tortuosity. There are degenerative changes of the visualized thoracic spine. Normal visualized ribs, clavicles, and shoulders. There is no demonstrated abnormality of the visualized soft tissue structures of the upper abdomen. RAD/Chest PA and Lateral IMPRESSION: Hyperinflation. The lungs are clear. Electronically Signed: Stevie Sargent MD at 10:50 EST Tel [phone], Service support , CC: Jacob Qiu MD; Cirilo Whittington MD Parachute/Combatant Diver Officer: Signed ALLERGIES ALLERGIES DATE TYPE / CODE NAME / CODE REACTION SEVERITY SOURCE 01/20/2018 Drug No Known Unknown [facility] Allergy/4160 Allergies/F00 Hospital 04260(SNOMED [id number](RXNOR Repository CT) M) ENCOUNTERS ENCOUNTERS ADMIT/DISCHARGE ACCOUNT ADMITTING ENCOUNTER LOCATION SOURCE NUMBER CLASS 02/16/2018 [id number] NELSY, Ambulatory Parag CROWDER MD [facility] Repository 02/01/2018/ [id number] [facility] Cirilo Encounter [facility] ing:[id number]: Repository AL366Cun: 1 01/20/2018 [id number] Ambulatory BMSBuilding:W [place] [facility] Repository PAYERS PAYERS ENCOUNTER GUARANTOR PAYER SUBSCRIBER SOURCE 02/16/2018 LEANDER Ziegler Primary LEANDER Walker [id number] [facility] Insurance:SECURE CARE CRILOWDOB: [address] MEDICARE [id number] [address] [facility] [place] [address] Number: [address] [place] [address] [id number] , [place] [id number] Date:Plan Name:NM 02/01/2018 LEANDER Ziegler Primary LEANDER Karlie Violeta [id number] Insurance:HOMETO CRILOWDOB: [address] [id number] [facility], [place] [address]Idu: MEDICAREPolicy Repository Number: () [id number] Date: DWAIN PASCAL [id number]: 02/01/2018 Secondary NOT GIVENUNK [place] Insurance:SELF PAY [facility] Number: Effective Repository Date:2017-12-29 01/20/2018 LEANDER Karlie Primary LEANDER Ziegler Violeta [id number] Insurance:[facility]ATION[facility]OB: [facility] [address] [id number], [place] [address]Jhy: MEDICAREPolicy Repository Number: () [id number] Date: [facility] DWAIN TEAGUE [address]WO: 01/20/2018 Secondary NOT GIVENUNK [place] Insurance:SELF PAY [facility] Number: Effective Repository Date:2018-01-20
== END 2018-02-02 12:37 | disposition home or self-care (01) | DRG 483 ==
LOC: ACINP 10:54 → MS3 12:15
PROVIDERS: Admitting Provider Specialist; Family Provider Family Medicine; PCP Family Medicine; Referring Provider Specialist; Visit Provider Specialist
PROC: 0RRK0JZ Replacement of Left Shoulder Joint with Synthetic Substitute, Open Approach (ICD-10-PCS; CPT 23472; principal; 2018-02-01 12:30)
DX: M19.012 Primary osteoarthritis, left shoulder (principal)
CPT/HCPCS: 71046; 73020; 80048; 82962; 83036; 85025; 87081; 93005; 97165; C1776; J7040; J7120; J2405